=== PATIENT | female | born 2005 | race Caucasian/White ===

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

== ENCOUNTER 2024-05-31 08:03 | Outpatient (CLI) | payer OTHER, SELFPAY | END 2024-05-31 08:04 | disposition home or self-care (01) | LOC: NFLDREF 08:05 | PROVIDERS: Visit Provider Registered Nurse | DX: F64.9 Gender identity disorder, unspecified (principal) | CPT/HCPCS: 84270; 84402; 84403 ==

== ENCOUNTER 2024-07-05 21:55 | Emergency (ER) | payer OTHER, SELFPAY ==
[2024-07-05 22:02] VITALS: BP 114/74; PULSE 55; RESP 18; TEMP 37.2; O2SAT 97; BMI 34.3
--- NOTE | 2024-07-05 22:28 | ED.CHESTPAIN ---
HPI - Chest Pain General Date Seen: 07/05/24 Chief Complaint: Chest Pain Stated Complaint: Chest Pain Time Seen by Provider: 07/05/24 22:06 Source: patient and family Mode of arrival: ambulatory Limitations: no limitations History of Present Illness HPI narrative: This pleasant 18-year-old female presents with friends from [place] [employer] with a history of chest pain on and off for the past 3-4 days, describes in his epigastric substernal region, with radiation to both her shoulders, he notes that today seem to worse, went away yesterday after he took some aspirin, he also has fairly anxious about this, denies any other radiation of pain there is no shortness of breath, worse with rest, better with movement. No history of falls or injury, no per previous history of heart issues, denies any history of blood clots PE or DVTs. No history of diabetes hypertension hyperlipidemia use of cocaine or methamphetamine, and a nonsmoker lifetime Only medication is testosterone replacement for transitioning. Does take thbt-twk-meancac Dilia, along with melatonin for sleep, admits to me that sleep has been issue for the past few days From [place] Family history of a maternal grandfather with heart disease in his early 60s. Surgical history of a cholecystectomy last year. Risk Factors Coronary artery disease risk factors: none Thoracic aortic dissection risk factors: none Related Data On Oral Contraceptives: No Home Medications ?Medication ?Instructions ?Recorded ?Confirmed cetirizine 10 mg capsule (Zyrtec) 10 mg PO QDAY PRN 08/04/23 07/05/24 melatonin 10 mg capsule 10 mg PO HS PRN 07/05/24 07/05/24 Previous Rx's ?Medication ?Instructions ?Recorded testosterone 1.5 pump topical QDAY #75 grams 06/02/24 Allergies Allergy/AdvReac Type Severity Reaction Status Date / Time seasonal Allergy Mild Uncoded 05/31/24 07:33 Review of Systems Status of ROS Reports: 10 or more systems reviewed and unremarkable except as noted in History and below PFSH PFSH Surgical History History of cholecystectomy ?Z90.49 - Acquired absence of other specified parts of digestive tract (ICD-10) Family History Mother Colon cancer, Onset Age: 52 Thyroid disease Family/Other Heart disease Social History Narrative: (He/him) [facility]. 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 Originally from [place]. Exam Narrative Exam Narrative: Patient is seen in room 2 with his friends, he is in no apparent distress, pupils are equal round reactive to light there is no scleral icterus redness, oropharynx is normal neck is supple, chest is good air entry bilaterally, with no wheezing crackles noted, heart sounds are normal, no clicks murmurs or gallops he has a little bit of epigastric discomfort on palpation, no organomegaly bowel sounds are normal no CVA tenderness he has no swelling of his lower extremities, no edema, moves all extremities independently in fine, does have some acne over his back. Const Vital Signs, click to edit/add: Vital Signs - 24 hr 07/05/24 22:02 07/05/24 23:14 07/05/24 23:15 Temperature 99 F Pulse Rate 71 65 Pulse Rate [Pulse Oximeter] 55 L Respiratory Rate 18 14 18 Blood Pressure [Right Upper Arm] 114/74 Pulse Oximetry 97 99 98 Oxygen Delivery Method Room Air Course Course ED Course: Discussed with the patient that all the testing was negative, I do not think this is atherosclerotic heart disease with angina or IL, I do not think this is a pulmonary embolism with a negative D-dimer, and normal lab tests otherwise. And normal vital signs. I think this more likely is related to either musculoskeletal or possibly reflux, he was very reassured by this, we went over signs and symptoms of worsening when they should be re-evaluated, he was comfortable going home. Vital Signs Vital signs: Initial Vital Signs Temperature 99 F 07/05/24 22:02 Temperature Source Temporal Artery Scan 07/05/24 22:02 Pulse Rate 55 L 07/05/24 22:02 Respiratory Rate 18 07/05/24 22:02 Blood Pressure 114/74 07/05/24 22:02 Blood Pressure Mean 87 07/05/24 22:02 Blood Pressure Position Supine 07/05/24 22:02 Pulse Oximetry 97 07/05/24 22:02 Oxygen Delivery Method Room Air 07/05/24 22:02 Vital Signs Temperature 99 F 07/05/24 22:02 Pulse Rate 55 L 07/05/24 22:02 Respiratory Rate 18 07/05/24 22:02 Blood Pressure 114/74 07/05/24 22:02 Pulse Oximetry 97 07/05/24 22:02 Oxygen Delivery Method Room Air 07/05/24 22:02 Temperature 99 F 07/05/24 22:02 Pulse Rate 65 07/05/24 23:15 Respiratory Rate 18 07/05/24 23:15 Blood Pressure 114/74 07/05/24 22:02 Pulse Oximetry 98 07/05/24 23:15 Oxygen Delivery Method Room Air 07/05/24 22:02 MDM - Chest Pain MDM Narrative Medical decision making narrative: During the evaluation of this patient I considered multiple differential diagnosis is. The life-threatening differential diagnosis include coronary disease/IL, pulmonary embolism, pneumothorax, pneumonia, and aortic dissection. Other differential diagnosis included but were not limited to pericarditis, myocarditis, chest wall pain, GERD, esophageal rupture, rib fracture contusion, pleurisy, as well as other etiologies. Medical Records Data Attestation: I reviewed the patient's medical records. Lab Data Attestation: I reviewed the patient's lab results. Labs: Lab Results 07/05/24 07/05/24 Range/Units 22:36 22:55 WBC 11.38 H (4.50-11.00) K/uL RBC 4.05 (4.00-5.20) m/uL Hgb 11.5 L (12.0-16.0) gm/dL Hct 35.8 (33.0-51.0) % MCV 88 (80-100) fL MCH 28 (26-34) pg MCHC 32 (32-36) gm/dL RDW Coeff of Wanda 12.0 (11.5-15.5) % Plt Count 306 (140-440) K/uL Neut % (Auto) 55.5 (42.0-72.0) % Lymph % (Auto) 36.2 (20-44) % [place] % (Auto) 6.0 (0.0-11.0) % Eos % (Auto) 0.6 (0.0-7.0) % Baso % (Auto) 0.7 (0.0-3.0) % Neut # (Auto) 6.30 (1.7-7.0) K/uL Lymph # (Auto) 4.10 H (0.90-2.90) K/uL [place] # (Auto) 0.70 (0.00-0.90) K/UL Eos # (Auto) 0.10 (0.00-0.50) K/uL Baso # (Auto) 0.10 (0.00-0.30) K/uL Abs Immat Gran (auto) 0.10 (0.00-0.30) K/uL Imm/Tot Granulo (auto) 1.0 % D-Dimer Quant (PE/DVT) 0.07 (0.00-0.50) ug/ml Sodium 139 (135-149) mmol/L Potassium 3.5 L (3.6-5.1) mmol/L Chloride 104 (96-114) mmol/L Carbon Dioxide 24 (20-32) mmol/L Anion Gap 11 (7-15) mEq/L BUN 14 (5-24) mg/dL Creatinine 0.7 (0.6-1.2) mg/dL Estimated Creat Clear 111.62 Estimated GFR 128 ml/min Glucose 93 (60-115) mg/dL Calcium 9.1 (8.7-10.8) mg/dL Total Bilirubin 0.7 (0.1-1.5) mg/dL Direct Bilirubin 0.3 (0.0-0.5) mg/dL AST 16 (12-35) U/L ALT 13 (4-35) U/L Alkaline Phosphatase 77 (40-150) U/L C-Reactive Protein < 0.5 L (0.5-1.0) mg/dL Total Protein 7.4 (6.0-8.3) g/dL Albumin 4.7 (3.3-5.0) g/dL Lipase 33 (23-300) U/L POC Troponin I 0.00 L (0.01-0.04) ng/ml Imaging Data Chest x-ray: Attestation: I have reviewed the pertinent imaging results. My impression: Negative chest Radiologist's impression: [address] [address] Diagnostic Imaging Report Patient: Ania Borrego MR#: [id number] : 2005 Acct:[id number] Loc: ED Service Date: 07/05/[address]: Ordering Physician: Amish Rendon M.D. Date of Service: 07/05/24 Procedure(s): XR chest 2V Accession Number(s): [id number] cc: Provider,Not a Local; Amish Rendon M.D.~ For Patients: As a result of the Cures Act, medical imaging exams and procedure reports are released immediately into your electronic medical record. You may view this report before your referring provider. If you have questions, please contact your health care provider. INDICATION: Chest pain. TECHNIQUE: Chest 2 views. COMPARISON: None. FINDINGS: Cardiovascular and mediastinum: Heart size and vasculature are normal in caliber and appearance. Lungs and pleural spaces: No focal consolidation, pleural effusion, or pneumothorax. Bones and soft tissues: Unremarkable for age. IMPRESSION: No evidence of an acute pulmonary process. Dictated by Jamaal Renteria MD @ 07/05/2024 10:55:24 PM (Electronically Signed) ECG Data Attestation: I personally reviewed and interpreted this ECG as follows: ECG interpretation date: 07/05/24 Interpretation: EKG shows normal sinus rhythm, no acute ST wave changes, some sinus arrhythmia with a ventricular rate of 74 QRS 70 milliseconds, QT was 388 and QTC is 430. Assessment: Normal EKG Discharge Plan Discharge Clinical Impression: Chest pain, Atypical chest pain Patient Disposition: Home w/ Parent or Adult Condition: Stable Instructions: Chest Pain (DC), Chest Wall Pain (ED) Additional Instructions: Home rest, all your tests ruled out for blood clot and heart issues, I suspect this is more either a musculoskeletal issue with the muscles, or possibly related to reflux. Use of Tums, along with maybe some Prilosec 20 mg for the next 2 3 weeks once a day, avoidance of caffeinated beverages in follow-up primary care Activity Level: No Restrictions Discharge Diet: Regular Prescriptions: No Action Zyrtec 10 mg capsule 10 mg PO QDAY PRN melatonin 10 mg capsule 10 mg PO HS PRN testosterone 20.25 mg/1.25 gram (1.62 %) gel in metered-dose pump 1.5 pump topical QDAY Qty: 75 2RF Follow Up/Referrals: Provider,Not a Local [Primary Care Provider] - Stand Alone Forms: [employer] Info Instructions
[2024-07-05 23:02] LABS: Basophils Percent Auto 0.7 % (0.0-3.0); Eosinophils Percent Auto 0.6 % (0.0-7.0); Hematocrit 35.8 % (33.0-51.0); Hemoglobin* 11.5 gm/dL (12.0-16.0); Lymphocytes Percent Auto 36.2 % (20-44); Mean Corpuscular HGB Conc 32 gm/dL (32-36); Mean Corpuscular Hemoglobin 28 pg (26-34); Mean Corpuscular Volume 88 fL (80-100); Neutrophils Percent Auto 55.5 % (42.0-72.0); Platelet Count* 306 K/uL (140-440); Red Blood Count 4.05 m/uL (4.00-5.20); White Blood Count* 11.38 K/uL (4.50-11.00)
[2024-07-05 23:05] LABS: Slide Review Reflex No
[2024-07-05 23:14] VITALS: PULSE 71; RESP 14; O2SAT 99
[2024-07-05 23:15] VITALS: PULSE 65; RESP 18; O2SAT 98
[2024-07-05 23:17] LABS: Albumin* 4.7 g/dL (3.3-5.0); Chloride* 104 mmol/L (96-114); Potassium* 3.5 mmol/L (3.6-5.1); Sodium* 139 mmol/L (135-149)
[2024-07-05 23:19] LABS: Creatinine* 0.7 mg/dL (0.6-1.2); Est. Creatinine Clearance* 111.62; Estimated Glomerular Filt Rate 128 ml/min
[2024-07-05 23:20] LABS: Alanine Aminotransferase* 13 U/L (4-35); Alkaline Phosphatase* 77 U/L (40-150); Anion Gap 11 mEq/L (7-15); Aspartate Amino Transferase* 16 U/L (12-35); Bilirubin Direct* 0.3 mg/dL (0.0-0.5); Bilirubin Total* 0.7 mg/dL (0.1-1.5); Blood Urea Nitrogen* 14 mg/dL (5-24); Carbon Dioxide* 24 mmol/L (20-32); Glucose* 93 mg/dL (60-115); Lipase* 33 U/L (23-300); Total Protein* 7.4 g/dL (6.0-8.3)
[2024-07-05 23:21] LABS: Calcium* 9.1 mg/dL (8.7-10.8)
[2024-07-05 23:25] LABS: C Reactive Protein* < 0.5 mg/dL (0.5-1.0)
[2024-07-05 23:28] LABS: D Dimer Quantitative* 0.07 ug/ml (0.00-0.50)
== END 2024-07-05 23:56 | disposition home or self-care (01) ==
PROVIDERS: Emergency Provider Family Medicine
DX: R07.89 Other chest pain (principal)
CPT/HCPCS: 36415; 71046; 80048; 80076; 83690; 84484; 85025; 85379; 86140; 93005; 94761; 99284; 99285

== ENCOUNTER 2024-09-27 15:56 | Outpatient (CLI) | payer OTHER, SELFPAY | END 2024-09-27 15:57 | disposition home or self-care (01) | LOC: NFLDREF 10-04 01:26 | PROVIDERS: Visit Provider Registered Nurse | DX: F64.0 Transsexualism (principal); Z79.890 Hormone replacement therapy | CPT/HCPCS: 84270; 84402; 84403 ==